=== PATIENT | female | born 1975 | race Two or more races ===

== ENCOUNTER 2025-05-08 13:43 | Emergency (ER) | payer BC ==
[~2025-05-08] VITALS: Ht 172.7 cm; Wt 71.7 kg
[2025-05-08 18:57] LABS: BASO % 1.0 % (0.1-1.2); EOS # 0.30 (0.04-0.54); EOS % 5.8 % (0.7-7.0); LYMPH # 1.80 (1.18-3.74); LYMPH % 34.7 % (19.3-53.1); MEAN PLATELET VOLUME 10.00 fl (9.4-12.4); MONO # 0.38 (0.24-0.82); MONO % 7.3 % (4.7-12.5); NEUT # 2.64 (1.56-6.13); NEUT % 51.0 % (34.0-71.1); RED CELL DISTRIBUTION WIDTH 14.2 % (11.6-14.4)
[2025-05-08 19:53] LABS: COVID-19 AG NEGATIVE (NEGATIVE)
[2025-05-08 19:54] LABS: ALT/SGPT 22.0 U/L (12-78); AST/SGOT 17.0 U/L (15-37); BILIRUBIN TOTAL 0.42 mg/dL (0.3-1.2); BUN CREA RATIO 29.0 (7.0-25.0); CREATININE SERUM 0.51 mg/dL (0.55-1.02); GFR 126.63; GLOBULINA 3.7 G/DL (2.4-3.5); GLUCOSE FASTING 77.0 mg/dL (65-100); OSMOLALITY SERUM 279.0 MOSM/KG (275-295)
[2025-05-08] MEDS ORDERED: PEPCID AC20 MG PO (20:09)
[2025-05-08] MEDS ORDERED: TYLENOL ARTHRI650 MG PO (20:09)
[2025-05-08] MEDS ORDERED: OSEL75CA PO (20:09)
[2025-05-08] MEDS ORDERED: BENZONATATE200 M1 PO (20:09)
== END 2025-05-08 22:58 | disposition home or self-care (01) ==
LOC: ER 13:43
PROVIDERS: Preventive Medicine Public Health & General Preventive Medicine
DX: B34.9 Viral infection, unspecified (principal); Z20.822 Contact with and (suspected) exposure to COVID-19